=== PATIENT | male | born 1960 | race Caucasian/White ===

== ENCOUNTER 2020-07-23 16:08 | Outpatient (REF) | payer MEDICAID, SELFPAY ==
[2020-07-24 15:10] LABS: COVID-19 RT-PCR UVMMC Result Negative (Negative)
== END 2020-07-23 16:28 ==
LOC: NCHCN 16:08
PROVIDERS: PCP Internal Medicine; Visit Provider Internal Medicine
DX: Z20.822 Contact with and (suspected) exposure to COVID-19 (principal)
CPT/HCPCS: U0003

== ENCOUNTER 2020-07-28 17:55 | Outpatient (REF) | payer MEDICAID, SELFPAY ==
[2020-07-30 17:18] LABS: COVID-19 RT-PCR UVMMC Result Negative (Negative)
== END 2020-07-28 18:15 ==
LOC: NCHCN 17:55
PROVIDERS: PCP Internal Medicine; Visit Provider Internal Medicine
DX: Z20.822 Contact with and (suspected) exposure to COVID-19 (principal)
CPT/HCPCS: U0003

== ENCOUNTER 2020-10-13 09:48 | Emergency (ER) | payer MEDICAID, SELFPAY ==
[2020-10-13 09:56] VITALS: BP 131/85; PULSE 88; RESP 14; TEMP 36.7; O2SAT 97
--- NOTE | 2020-10-13 10:25 | DI.RAD_ITS ---
EXAM: XR HAND LT COMPLETE CLINICAL HISTORY: Left middle knuckle tenderness, R/O injury. TECHNIQUE: 2D digital imaging was performed. COMPARISON: No exams were available for comparison FINDINGS: BONES: No acute fracture is present. No bony destructive lesion is seen. JOINTS: No dislocation present. Degenerative changes are seen in the hand particularly at the 1st CMC joint. SOFT TISSUE: Normal. Calcifications are seen adjacent to the head of the 3rd metacarpal. These appea r chronic. IMPRESSION: No acute fracture or dislocation. DATA REPOSITORY: RADIATION DOSE DELIVERED:
--- NOTE | 2020-10-13 10:49 | W.ED.GENAD ---
Discharge Plan Disposition Patient Disposition: HOME Condition: Stable Discharge Details Clinical Impression: Swelling of left hand Primary Care Provider: Prosper Fulton ED Provider: Vira Banerjee Home Meds and New Rx's Prescriptions: New cephalexin 500 mg tablet 500 mg PO BID 7 Days Qty: 14 RF: 0 naproxen [EC-Naproxen] 500 mg tablet,delayed release (DR/EC) 500 mg PO BID PRN (Reason: pain) 7 Days Qty: 14 RF: 0 No Action ibuprofen 600 MG tablet 600 - 800 mg PO Q6H PRN (Reason: Pain) RF: 0 Discharge Instructions Instructions: Cellulitis (ED), Insect Bite or Sting (ED) Additional Instructions: No injuries or broken bones noted on the x-ray today.This could be an insect bite or cellulitis/infection of the skin. Rest, ice, compression elevation. Wear the Brant wrap as needed for comfort. Take the antibiotics as directed and the naproxen. Return to the ED if you have difficulty making a fist or extending your fingers or if the redness or swelling gets any worse, fever or any concerns. If you are still having problems in the next 1 to 2 weeks. You may follow-up with primary care or orthopedics. Follow up with primary care provider in 3-5 days. Return to ED sooner if any worsening or concerns. Increase oral fluids. Stand Alone Forms: Work Release Referrals: Donovan Smith MD [ [facility] STAFF PHYSICIAN] - 2 weeks Prosper Fulton MD [Primary Care Provider] - Discharge Data Discharge Date/Time-TO BE ENTERED AT DEPARTURE: 10/13/20 11:59 Medical Decision Making 59-year-old male presents to the ER with chief complaint of left dorsal hand erythema and swelling over the second and third MCP joint, Which began on . 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 He reports increased pain, inability to sleep last night. Did take 800 mg ibuprofen this morning which alleviated the throbbing. He denies any myalgias or fever. He does have full flexion extension of his wrist. Does have increased pain with forming a fist he is able to extend fully. He reports pain 7 out of 10 upon initial exam. EXAM: XR HAND LT COMPLETE CLINICAL HISTORY: Left middle knuckle tenderness, R/O injury. TECHNIQUE: 2D digital imaging was performed. COMPARISON: No exams were available for comparison FINDINGS: BONES: No acute fracture is present. No bony destructive lesion is seen. JOINTS: No dislocation present. Degenerative changes are seen in the hand particularly at the 1st CMC joint. SOFT TISSUE: Normal. Calcifications are seen adjacent to the head of the 3rd metacarpal. These appear chronic. IMPRESSION: No acute fracture or dislocation. Differential diagnosis includes but not limited to osteoarthritis, cellulitis, venomous insect bite, occult fracture. Will place patient on cephalexin for 7 days for possible cellulitis. Will instruct on ice and RICE procedures. We will give patient Brant wrap prior to discharge. HPI General Mode of arrival: ambulatory. Date/Time Provider Initiated Documentation: 10/13/20 09:55. Limitations to Documentation: no limitations. Information obtained by: patient. HPI Narrative: 59-year-old male presents to the ER with chief complaint of left dorsal hand erythema and swelling over the second and third MCP joint, Which began on . 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 He reports increased pain, inability to sleep last night. Did take 800 mg ibuprofen this morning which alleviated the throbbing. He denies any myalgias or fever. He does have full flexion extension of his wrist. Does have increased pain with forming a fist he is able to extend fully. He reports pain 7 out of 10 upon initial exam. Related Data Home Medications Medication Instructions Recorded Confirmed cephalexin 500 mg PO BID 7 Days #14 tab 10/13/20 ibuprofen 600 - 800 mg PO Q6H PRN 10/13/20 10/13/20 naproxen [EC-Naproxen] 500 mg PO BID PRN 7 Days #14 tab 10/13/20 Previous Rx's Medication Instructions Recorded cephalexin 500 mg PO BID 7 Days #14 tab 10/13/20 naproxen [EC-Naproxen] 500 mg PO BID PRN 7 Days #14 tab 10/13/20 Allergies Allergy/AdvReac Type Severity Reaction Status Date / Time No Known Allergies Allergy Unverified 10/13/20 10:01 General Stated Complaint: Orthopedic DRU: 3 Review of Systems All systems reviewed & are unremarkable except as noted in HPI and below Constitutional Constitutional: Denies fever(s) and Denies lethargy Cardiovascular Cardiovascular: Reports system reviewed and no additional complaints, except as documented, Denies chest pain, Denies dyspnea and Denies dyspnea on exertion Respiratory Respiratory: Denies cough, Denies dyspnea and Denies dyspnea on exertion Musculoskeletal Musculoskeletal: Reports as per HPI, Denies myalgias, Reports joint swelling, Denies numbness and Denies radiating pain into limb Comments: Erythema swelling noted to the dorsum of the left hand no significant wounds there is an old dried scab just adjacent to the area. He has full range of motion to his hand is able to extend and flex. Neurologic Neurologic: Denies numbness [facility] Social History Smoking/Tobacco Use Status: Never Smoking risk assessment performed?: Yes Alcohol Intake: current Alcohol Intake frequency: a few times a month Alcohol type: beer Drug use: Never Do you feel safe at home: Yes Do you feel safe in your relationship?: Yes Exam Narrative Exam Narrative: Constitutional: Alert and oriented x3. Appears stated age. Normal body habitus. Head: Normocephalic, no trauma. Eyes: Pupils PERRLA, Red reflex noted, EOM's intact. Eyelids symmetrical without lesions, discharge, or swelling. ENT: Bilateral TM's WNL, External ear normal to inspection, no mastoid TTP, swelling, or erythema, Nasal turbinates WNL, no nasal discharge. Normal dentition, Posterior pharynx WNL, no exudate. Chest: RRR, Normal S1, S2, distal pulses intact. Resp: Lungs clear to auscultation bilaterally, no wheezes, rales, or rhonchi. Musculoskeletal: Normal gait, 5/5 strength to all four extremities. Swelling erythema noted the dorsum of the left hand no obvious puncture wound or area of injury. Skin: No suspicious rashes or lesions. Capillary refill less than 2 sec. Neurologic: Cranial nerves II-XII intact. Alert and oriented x 3. DTR's intact. Hematologic/Lymphatic: No ecchymosis, no lymphadenopathy. Course Vital Signs Vital signs: Vital Signs Temperature 36.7 C 10/13/20 09:56 Pulse 88 10/13/20 09:56 Respiratory Rate 14 10/13/20 09:56 Blood Pressure 131/85 10/13/20 09:56 Pulse Oximetry 97 10/13/20 09:56 Temperature 36.7 C 10/13/20 09:56 Temperature Source Skin 10/13/20 09:56 Pulse 88 10/13/20 09:56 Respiratory Rate 14 10/13/20 09:56 Respiratory Effort 10/13/20 10:02 Blood Pressure 131/85 10/13/20 09:56 Blood Pressure Position Sitting 10/13/20 09:56 Pulse Oximetry 97 10/13/20 09:56 Oxygen Delivery Method Room Air 10/13/20 09:56 Oxygen Flow Rate 0 10/13/20 09:56 Pain Level 7 10/13/20 10:13
[2020-10-13] MEDS: Cephalexin 500 MG CAP PO (10:59)
[2020-10-13] MEDS: Acetaminophen 500 MG TAB 1000 MG PO (10:59)
[2020-10-13] MEDS: Cephalexin 500 MG CAP, 4 CAPS/BTL PO (10:59)
== END 2020-10-13 11:59 | disposition home or self-care (01) ==
PROVIDERS: Emergency Provider Registered Nurse Emergency; PCP Internal Medicine
DX: L03.114 Cellulitis of left upper limb (principal)
CPT/HCPCS: 99283; 73130

== ENCOUNTER 2021-06-17 14:03 | Emergency (ER) | payer MEDICAID, SELFPAY ==
[2021-06-17 14:07] VITALS: BP 147/92; PULSE 88; RESP 12; TEMP 36.8; O2SAT 97
--- NOTE | 2021-06-17 14:19 | ED.GENADUL_ITS ---
Discharge Plan Disposition Patient Disposition: HOME Condition: Stable Discharge Details Clinical Impression: Rib contusion Primary Care Provider: Prosper Fulton ED Provider: Angelo Hinkle Home Meds and New Rx's Prescriptions: Continued ibuprofen 600 MG tablet 600 - 800 mg PO Q6H PRN (Reason: Pain) RF: 0 Discharge Instructions Instructions: Rib Contusion (ED) Additional Instructions: you can take 1000mg tylenol and 600mg ibuprofen every 6 hours for pain as needed if you still have pain follow up with your primary care provider if you feel more ill, have severe worsening pain or fever return to the emergency department Medical Decision Making 60 yo male who denies chronic medical problems comes in with left sided chest pain s/p fall Tuesday. He states he hadn't sanded his driveway and had a small coating of snow covering it Tuesday. He was walking and slipped on ice he didn't see and landed on the left chest. No loc and no head trauma. HAs had left lateral chest pain since so came here. Denies any fevers, chills, abdominal pain, neck pain, head pain. He is in no distress on exam. He is speaking clearly , caox4 with normal gait. He has no signs of head trauma and no midline spine tenderness, full range of motion of the neck. No abodminal tenderness. He is tender in the anterior axillary line on the left chest over the 3-4 ribs, no anterior chest tenderness. Clear lungs, no murmurs. Suspect rib contusion biut will xray to evaluate for fracture and less likely pneumothorax. imaging shows possible fracture nondisplaced of 5th rib otherwise no acute findings. Discussed with pt and he is stable for d/c and declined pain meds. Advised to f/u with pcp and return precautions given Differential Diagnosis Differential Diagnosis: fracture, contusion, pneumothorax Imaging Data Radiologic Study: Attestation: I personally reviewed and interpreted this imaging study as follows: Imaging: X-Ray Radiologist's impression: [No acute pulmonary findings.] [Linear lucency in the lateral aspect of the left 5th rib which may represent a nondisplaced fracture. No pneumothorax or pleural effusion. Results of this exam have been verbally communicated with provider.] HPI General Mode of arrival: ambulatory . Date/Time Provider Initiated Documentation: 06/17/21 14:03 . Limitations to Documentation: no limitations . Information obtained by: patient . History of Present Illness 60 year old M presents to the emergency department with the chief complaint of left sided chest pain s/p fall, described as moderate, with intensity rated at 5. Quality is described as aching, and is localized to the chest. Patient reports no radiation. Patient started experiencing this day(s) (4) and it has been constant. No relieving factors improve symptom(s), Other factors that worsen symptoms (deep breaths) . Patient notes no other symptoms.. Patient did receive the following treatments prior to arrival, none Related Data Home Medications Medication Instructions Recorded Confirmed ibuprofen 600 - 800 mg PO Q6H PRN 10/13/20 06/17/21 Allergies Allergy/AdvReac Type Severity Reaction Status Date / Time No Known Allergies Allergy Unverified 06/17/21 14:15 General Stated Complaint: Chest/Rib DRU: 4 Review of Systems All systems reviewed & are unremarkable except as noted in HPI and below Constitutional Constitutional: Denies chills, Denies fever(s) and Denies weakness Cardiovascular Cardiovascular: Denies dyspnea Respiratory Respiratory: Denies cough and Denies dyspnea Gastrointestinal Gastrointestinal: Denies abdominal pain, Denies nausea and Denies vomiting Musculoskeletal Musculoskeletal: Denies joint swelling Neurologic Neurologic: Denies weakness Psychiatric Psychiatric: Denies depression [facility] Active Problem List (Updated 06/17/21 @ 14:24 by Angelo Hinkle MD) Swelling of left hand (Acute) Rib contusion (Acute) Social History Smoking/Tobacco Use Status: Never Smoking risk assessment performed?: Yes Alcohol Intake: current Alcohol Intake frequency: a few times a month Alcohol type: beer Drug use: Never Substance use type: does not use Do you feel safe at home: Yes Do you feel safe in your relationship?: Yes Exam Const General: no acute distress Orientation: alert [facility] Head: normal to inspection Ears: external ears normal General nose exam: external nose normal Mouth: moist mucous membranes Eyes General: appearance normal, both eyes and all related structures Neck Neck: normal visual inspection Chest Chest: tenderness Resp Effort & Inspection: normal respiratory effort and able to speak in complete sentences Cardio Rate: regular rate GI Palpation: soft and nontender Skin General skin exam: no rashes or lesions noted Neuro General: patient alert and patient oriented x3 Extrem General: normal to inspection Psych Mental Status: mental status grossly normal Course Vital Signs Vital signs: Vital Signs Temperature 36.8 C 06/17/21 14:07 Pulse 88 06/17/21 14:07 Respiratory Rate 12 06/17/21 14:07 Blood Pressure 147/92 H 06/17/21 14:07 Pulse Oximetry 97 06/17/21 14:07 Temperature 36.8 C 06/17/21 14:07 Temperature Source Temporal Artery Scan 06/17/21 14:07 Pulse 88 06/17/21 14:07 Respiratory Rate 12 06/17/21 14:07 Respiratory Effort Non-Labored 06/17/21 14:12 Respiratory Depth Normal 06/17/21 14:12 Respiratory Pattern Normal 06/17/21 14:12 Blood Pressure 147/92 H 06/17/21 14:07 Blood Pressure Position Sitting 06/17/21 14:07 Pulse Oximetry 97 06/17/21 14:07 Oxygen Delivery Method Room Air 06/17/21 14:07 Oxygen Flow Rate 0 06/17/21 14:07 Pain Level 8 06/17/21 14:12 PAWSS Have you Been Recently Intoxicated or Drunk Within the Last 30 days?: No Have you Ever Experienced Previous Episodes of Alcohol Withdrawal?: No Have you ever Experienced Withdrawal Seizures?: No Have you ever Experienced Delirium Tremens(DT)s?: No Have you ever undergone Alcohol Rehabilitation Treatment (i.e, inpt ot outpatient treatment programs)?: No Have you ever Experienced Blackouts?: No Have you ever Combined Alcohol with other Downers within the last 90 days?: No Have you ever Combined Alcohol with any other Substance of Abuse during the last 90 days?: No Positive Blood Alcohol level on Presentation? [PCS.BAL]: No Evidence of Increased Autonomic Activity (i.e. HR>120, tremor, sweating, agitation, nausea)?: No Result: 0
[2021-06-17] MEDS: Ibuprofen 600 MG TAB PO (14:23)
--- NOTE | 2021-06-17 14:26 | DI.RAD_ITS ---
Exam(s) XR CHEST 2V PA LATERAL EXAM: XR CHEST 2V PA LATERAL CLINICAL HISTORY: left sided chest pain s/p fall TECHNIQUE: 2D digital imaging was performed of the chest. Two images were obtained. PA and lateral views were obtained. COMPARISON: CR LEFT RIBS TO INCLUDE CXR from 05/11/2017 CR LEFT RIBS TO INCLUDE CXR from 05/11/2017 FINDINGS: MEDIASTINUM: Normal. HEART: Normal. PULMONARY VASCULATURE: Normal. LUNGS: Clear. PLEURAL SPACE: No pleural effusion or pneumothorax. BONE:Within normal limits for the patient's age. There is a question of a linear lucency at involvin g the lateral aspect of the left 5th rib which may represent a nondisplaced fracture. OTHER FINDINGS:Normal. IMPRESSION: 1. No acute pulmonary findings. 2. Linear lucency in the lateral aspect of the left 5th rib which may represent a nondisplaced fractu re. 3. No pneumothorax or pleural effusion. 4. Results of this exam have been verbally communicated with provider. DATA REPOSITORY: RADIATION DOSE DELIVERED:
== END 2021-06-17 14:51 | disposition home or self-care (01) ==
LOC: ER 14:46
PROVIDERS: Emergency Provider Emergency Medicine; PCP Internal Medicine
DX: S20.212A Contusion of left front wall of thorax, initial encounter (principal); W00.0XXA Fall on same level due to ice and snow, initial encounter
CPT/HCPCS: 99283; 71046

== ENCOUNTER 2021-06-30 15:12 | Outpatient (REF) | payer MEDICAID, SELFPAY ==
[2021-07-02 17:00] LABS: COVID-19 RT-PCR UVMMC Result Negative (Negative)
== END 2021-06-30 15:13 | disposition home or self-care (01) ==
LOC: NCHCN 15:12
PROVIDERS: PCP Internal Medicine; Visit Provider Nurse Practitioner Family
DX: Z20.822 Contact with and (suspected) exposure to COVID-19 (principal)
CPT/HCPCS: U0003

== ENCOUNTER 2021-09-04 11:40 | Emergency (ER) | payer MEDICAID, SELFPAY ==
[2021-09-04 11:48] VITALS: BP 154/78; PULSE 79; RESP 16; TEMP 36.6; O2SAT 99
--- NOTE | 2021-09-04 12:45 | DI.RAD_ITS ---
Exam(s) XR HAND LT COMPLETE EXAM: XR HAND LT COMPLETE CLINICAL HISTORY: crush injury concern for L second digit fracture. TECHNIQUE: 2D digital imaging was performed. COMPARISON: CR XR HAND LT COMPLETE from 10/13/2020 FINDINGS: There is an acute angulated oblique fracture of the diaphysis of the proximal phalanx of the 2nd-inde x finger. There are also fracture lines evident in the middle phalanx of the same finger, nondisplaced but invo lving the articular surface of the PIP joint. The distal phalanx is intact as is the metacarpal. No other phalangeal fractures identified. IMPRESSION: Fractures of the proximal and middle phalanges of the 2nd-index finger. No radiopaque foreign body. DATA REPOSITORY: RADIATION DOSE DELIVERED:
--- NOTE | 2021-09-04 12:45 | ED.GENADUL_ITS ---
Discharge Plan Disposition Patient Disposition: HOME Condition: Improving Discharge Details Chief Complaint: Orthopedic Clinical Impression: Finger fracture, left Primary Care Provider: Prosper Fulton ED Provider: Jesus Eddy Home Meds and New Rx's Prescriptions: No Action ibuprofen 600 MG tablet 600 - 800 mg PO Q6H PRN (Reason: Pain) 0RF Discharge Instructions Instructions: Finger Fracture (ED) Additional Instructions: Please follow-up with Dr. Smith (orthopedic surgery) early next week as scheduled; return to the emergency department if you develop change in color or sensation in finger or hand. Continue with Motrin Tylenol at home elevate and rest. Medical Decision Making 60-year-old male presents several days after falling on the ice and having his hand crushed by a piece of wood, swelling to second digit of left hand, neurovascular exam of limb intact warm well perfused and sensate extremity and digit, range of motion limited by swelling however is able to flex distally and proximally and is able to extend, no signs of laceration, concern for underlying fracture versus dislocation. Patient does have significant edema to the second digit, and I informed patient that if the edema were to get worse and he were to develop numbness or other change in sensation or noticed any change in the temperature or color of his finger he will need to return immediately to the emergency department for stat orthopedic intervention as this would be concerning for a compartment syndrome of the finger. Trial of ice anti- inflammatory will obtain x-ray. Likely close follow-up with orthopedic team pending x-ray results. 15: [address] Smith who would like to follow patient closely next week to assure proper healing, will likely need fixation in the near future. Volar plaster splint applied to second through fourth digit left hand crossing the wrist on the forearm. Patient has intact perfusion and sensation in digits. Patient given home care instructions number cautions. We will follow up next week. HPI General Date/Time Provider Initiated Documentation: 09/04/21 12:15 . HPI Narrative: 50-year-old male presents with several days after falling on the ice while carrying a piece of wood, crush injury to his left hand involving his second digit and palm, swelling and pain over the past several days. Related Data Home Medications Medication Instructions Recorded Confirmed ibuprofen 600 mg tablet 600 - 800 mg PO Q6H PRN 10/13/20 09/04/21 Allergies Allergy/AdvReac Type Severity Reaction Status Date / Time No Known Allergies Allergy Unverified 09/04/21 11:51 General Stated Complaint: Orthopedic DRU: 4 Review of Systems Narrative: Review of Systems Constitutional: negative Eyes: negative ENT: negative Cardiovascular: negative Respiratory: negative Gastrointestinal: negative : negative Musculoskeletal: Digit swelling hand pain Skin: negative Neurologic: negative Psych: negative PFSH All Active Problems (Updated 09/04/21 @ 15:51 by Jesus Eddy MD) Swelling of left hand (Acute) Rib contusion (Acute) Finger fracture, left (Acute) Social History Smoking/Tobacco Use Status: Never Smoking risk assessment performed?: Yes Alcohol Intake: current Alcohol Intake frequency: a few times a month Alcohol type: beer Drug use: Never Substance use type: does not use Do you feel safe at home: Yes Do you feel safe in your relationship?: Yes Exam Narrative Exam Narrative: Physical Examination General: alert, awake, cooperative, resting comfortably, no acute distress HEENT: normocephalic, atraumatic; PERRL, EOM intact, conjunctiva normal; no nasal discharge; moist mucous membranes, oral and pharyngeal mucosa normal, tolerating secretions Neck: supple, trachea midline; full ROM Chest: normal to inspection Respiratory: normal respiratory effort, speaking in full sentences, clear to auscultation, no wheezing, rales or rhonchi Cardiac: regular rate, regular rhythm, S1S2 intact, no murmurs rubs or gallops GI: abdomen soft, non-tender, non-distended; no palpable mass or hepatosplenomegaly Skin: no lesions, rashes or trauma appreciated Neuro: AAOx3, normal speech, moving all extremities Extremities: Left upper extremity: Ecchymosis and swelling to second digit, able to flex distally and proximally however limited by tense edema, extension intact, warm sensate digit, median radial ulnar nerve distribution intact, some ecchymosis into mid hand, no evidence of lacerations Psych: Appropriate mood and affect Course Vital Signs Vital signs: Vital Signs Temperature 36.6 C 09/04/21 11:48 Pulse 79 09/04/21 11:48 Respiratory Rate 16 09/04/21 11:48 Blood Pressure 154/78 H 09/04/21 11:48 Pulse Oximetry 99 09/04/21 11:48 Temperature 36.6 C 09/04/21 11:48 Temperature Source Temporal Artery Scan 09/04/21 11:48 Pulse 79 09/04/21 11:48 Respiratory Rate 16 09/04/21 11:48 Respiratory Effort Non-Labored 09/04/21 11:52 Blood Pressure 154/78 H 09/04/21 11:48 Blood Pressure Position Sitting 09/04/21 11:48 Pulse Oximetry 99 09/04/21 11:48 Oxygen Delivery Method Room Air 09/04/21 11:48 Oxygen Flow Rate 0 09/04/21 11:48 Pain Level 7 09/04/21 11:48 PAWSS Have you Been Recently Intoxicated or Drunk Within the Last 30 days?: No Have you Ever Experienced Previous Episodes of Alcohol Withdrawal?: No Have you ever Experienced Withdrawal Seizures?: No Have you ever Experienced Delirium Tremens(DT)s?: No Have you ever undergone Alcohol Rehabilitation Treatment (i.e, inpt ot outpatient treatment programs)?: No Have you ever Experienced Blackouts?: No Have you ever Combined Alcohol with other Downers within the last 90 days?: No Have you ever Combined Alcohol with any other Substance of Abuse during the last 90 days?: No Positive Blood Alcohol level on Presentation? [PCS.BAL]: No Evidence of Increased Autonomic Activity (i.e. HR>120, tremor, sweating, agitation, nausea)?: No Result: 0
[2021-09-04] MEDS: Ketorolac 15 MG/ML VIAL IM (12:52)
== END 2021-09-04 15:57 | disposition home or self-care (01) ==
PROVIDERS: Emergency Provider Emergency Medicine; PCP Internal Medicine
DX: S62.641A Nondisplaced fracture of proximal phalanx of left index finger, initial encounter for closed fracture (principal); W23.0XXA Caught, crushed, jammed, or pinched between moving objects, initial encounter
CPT/HCPCS: 29125; 96372; 99284; 73130; 99283; J1885

== ENCOUNTER 2021-09-07 14:26 | Outpatient (CLI) | payer MEDICAID, SELFPAY ==
--- NOTE | 2021-09-07 13:45 | DI.RAD_ITS ---
Exam(s) XR FINGER LT INDEX EXAM: XR FINGER LT INDEX CLINICAL HISTORY: eval LIF proximal and middle phalanx fracture. TECHNIQUE: 2D digital imaging was performed. COMPARISON: None. FINDINGS: BONES: No change in nondisplaced intra-articular fracture of the proximal to mid middle phalanx. No change in alignment of the comminuted fracture of the mid aspect of the proximal phalanx which shows posterior angulation. No definite extension to the articular surface. No bony destructive lesion is seen. JOINTS: No dislocation present. SOFT TISSUE: Soft tissue swelling. IMPRESSION: Stable appearance of fractures of proximal and mid phalanges. DATA REPOSITORY: RADIATION DOSE DELIVERED:
--- NOTE | 2021-09-07 14:15 | DI.RAD_ITS ---
Exam(s) XR FINGER LT INDEX POST REDUC EXAM: XR FINGER LT INDEX POST REDUC INDICATION: f/u Left IF reduction/splinting. COMPARISON: CR XR FINGER LT INDEX from 09/07/2021 TECHNIQUE: 2D digital imaging was performed. FINDINGS: A posterior splint has been placed. Two lateral views were performed. There is no definite change i n alignment of the fractures of the proximal and mid phalanges. Soft tissue swelling is again noted. DATA REPOSITORY: RADIATION DOSE DELIVERED:
== END 2021-09-07 14:27 | disposition home or self-care (01) ==
LOC: DIORS 14:26
PROVIDERS: PCP Internal Medicine; Referring Provider Internal Medicine; Visit Provider Student in an Organized Health Care Education/Training Program
DX: S62.641D Nondisplaced fracture of proximal phalanx of left index finger, subsequent encounter for fracture with routine healing; S62.651D Nondisplaced fracture of middle phalanx of left index finger, subsequent encounter for fracture with routine healing; M79.89 Other specified soft tissue disorders; W00.0XXD Fall on same level due to ice and snow, subsequent encounter
CPT/HCPCS: 73140

== ENCOUNTER 2021-09-14 09:13 | Outpatient (CLI) | payer MEDICAID, SELFPAY ==
--- NOTE | 2021-09-14 09:00 | DI.RAD_ITS ---
Exam(s) XR FINGER LT INDEX EXAM: XR FINGER LT INDEX INDICATION: F/U L INDEX FINGER FRACTURE. TECHNIQUE: 2D digital imaging was performed. 2D digital imaging was performed. Three views COMPARISON: CR XR FINGER LT INDEX POST REDUC from 09/07/2021 CR XR FINGER LT INDEX from 09/07/2021 07 September 2021 FINDINGS: There has been no change in the alignment of the fractures of the proximal and middle phalanges. DATA REPOSITORY: RADIATION DOSE DELIVERED:
== END 2021-09-14 09:14 | disposition home or self-care (01) ==
LOC: DIORS 09:13
PROVIDERS: PCP Internal Medicine; Visit Provider Student in an Organized Health Care Education/Training Program
DX: S62.641D Nondisplaced fracture of proximal phalanx of left index finger, subsequent encounter for fracture with routine healing (principal); S62.651D Nondisplaced fracture of middle phalanx of left index finger, subsequent encounter for fracture with routine healing; W00.0XXD Fall on same level due to ice and snow, subsequent encounter
CPT/HCPCS: 73140

== ENCOUNTER 2021-09-15 14:17 | Day surgery (SDC) | payer MEDICAID, SELFPAY ==
[2021-09-15 14:46] VITALS: BP 148/98; PULSE 77; RESP 16; TEMP 36.4; O2SAT 98
[2021-09-15] MEDS: Lidocaine 1% Multi-Dose 50 ML VIAL (16:45)
[2021-09-15] MEDS: Sodium Bicarbonate 50 MEQ/50 ML VIAL (16:45)
[2021-09-15] MEDS: Bupivacaine 0.5% Pres-Free 30 ML VIAL (17:30)
[2021-09-15 17:45] VITALS: BP 142/87; PULSE 66; RESP 16; TEMP 36.5; O2SAT 98
--- NOTE | 2021-09-15 21:53 | ROE_ITS ---
Date of service: 09/15/21 Time of Service: 17:30 Operative Note Operative Note DATE OF PROCEDURE: 09/15/21 PRE-OP DIAGNOSIS: Left index proximal phalanx and middle phalanx fractures PROCEDURE: Closed reduction and percutaneous pinning of left index proximal phalanx fracture SURGEON: Donovan Smith ANESTHESIA TYPE: Local By Surgeon Refer to Anesthesia Record ESTIMATED BLOOD LOSS: 10 TOURNIQUET TIME: 0 COMPLICATIONS: None Patient was transported to: same day Patient's condition: stable Indications: All is a 60-year-old who suffered a fracture of his left index finger middle phalanx and proximal phalanx. There is notable displacement. He had continue to work and initially elected to proceed with nonoperative treatments despite the displacement of the fracture fragments. However, he called this morning with a change of mind about the treatment course and desire for this to be fixed. I previously discussed some treatment options and recommended close redu ction and percutaneous pinning. I once again reviewed this treatment with him. I discussed the risk of the procedure to include bleeding, infection, pain, stiffness, damage to nerves and vessels, damage to muscle and tendons, need for repeat procedures, pin site irritation or infection. Despite these risk, he elects to proceed. Findings: There is a notably comminuted and displaced fracture of the proximal phalanx. Close reduction was challenging to obtain reduction in both the AP and lateral views. Appropriate reduction in both use a K wire was placed from a distal to proximal fashion. A second K wire was attempted but was unable to successfully gain fixation of both primary fracture fragments. Therefore, a single K wire was utilized. Procedure Description: All was greeted in the preoperative holding area. His identity was confirmed the correct site was identified and marked. The consent was reviewed the patient and signed. He was taken to the operating room. Left and was placed into a hand table. No prophylactic antibiotics were necessary. A timeout was performed for safe surgery. The left hand was prepped with ChloraPrep and draped in standard fashion. A digital nerve block of the left index finger was administered using 10 cc of 1% lidocaine. Once this had a chance to set up a close reduction was performed. I utilized fluoroscopy to help guide this reduction. The reduction was quite challenging and already showed some early signs of healing. I was unable to fully improve the translation in the lateral plane but was able to improve the angulation. Likewise, some mild translation was still present in the AP plane. This likely corresponded to early fracture callus formation within the fracture itself. I still did not think opening this fracture at this time would be beneficial due to stiffness concerns. I utilized a pointed point clamp as well as manual reduction to obtain an appropriate reduction that had no significant angulation and mild translation. A .045 inch K wire was then inserted from the distal, radial shoulder of the proximal phalanx across the fracture and into the base of the proximal phalanx. This had excellent purchase in both aspects of the bone and had excellent stability. Once again, there is some mild translation of the fracture but no significant angulation. I then attempted a second K wire. Unfortunately, the comminution over the distal, ulnar aspect of this proximal phalanx made insertion difficult. I tried for multiple positions to get this K wires across the fracture site appropriately but was unable to due to fracture fragments about the side of the proximal phalanx. After attempting multiple times I decided to abort placement of a second K wire. Stability was checked with single K wire which did seem to hold the bones in appropriate position. Therefore, this was completed with a single K wire. Reinjection of the digital block was performed using 0.25% bupivacaine. The hand was cleaned. The pin was cut at the level of the skin. The finger was wrapped with Xeroform followed by gauze and a conform dressing. An AlumaFoam splint was placed dorsally and this was secured with tape and an Brant wrap. At the end the case all counts are correct. He is transferred back to the same-day surgery area in a stable condition
== END 2021-09-15 17:57 | disposition home or self-care (01) ==
PROVIDERS: PCP Internal Medicine; Visit Provider Student in an Organized Health Care Education/Training Program
PROC: 0PSV34Z Reposition Left Finger Phalanx with Internal Fixation Device, Percutaneous Approach (ICD-10-PCS; CPT 26727; principal; 2021-09-15 18:00)
DX: S62.621A Displaced fracture of middle phalanx of left index finger, initial encounter for closed fracture (principal); S62.611A Displaced fracture of proximal phalanx of left index finger, initial encounter for closed fracture; X58.XXXA Exposure to other specified factors, initial encounter
CPT/HCPCS: 26727

== ENCOUNTER 2021-09-28 09:04 | Outpatient (CLI) | payer MEDICAID, SELFPAY ==
--- NOTE | 2021-09-28 08:45 | DI.RAD_ITS ---
Exam(s) XR FINGER LT INDEX EXAM: XR FINGER LT INDEX CLINICAL HISTORY: S/P PINNING OF L INDEX FINGER. TECHNIQUE: 2D digital imaging was performed. COMPARISON: CR XR FINGER LT INDEX from 09/14/2021 FINDINGS: 3 views There is now a K-wire through the fracture site in the proximal phalanx with some improved alignment evident. IMPRESSION: DATA REPOSITORY: RADIATION DOSE DELIVERED:
== END 2021-09-28 09:05 | disposition home or self-care (01) ==
LOC: DIORS 09:04
PROVIDERS: PCP Internal Medicine; Visit Provider Student in an Organized Health Care Education/Training Program
DX: S62.641D Nondisplaced fracture of proximal phalanx of left index finger, subsequent encounter for fracture with routine healing (principal); W00.0XXD Fall on same level due to ice and snow, subsequent encounter
CPT/HCPCS: 73140

== ENCOUNTER 2021-11-02 15:02 | Outpatient (CLI) | payer MEDICAID, SELFPAY ==
--- NOTE | 2021-11-02 07:45 | DI.RAD_ITS ---
Exam(s) XR FINGER LT INDEX EXAM: XR FINGER LT INDEX EXAM DATE/TIME: CLINICAL HISTORY: f/u index finger fracture. TECHNIQUE: 2D digital imaging was performed of the left finger. Three views were obtained. PA/AP, oblique, and lateral views were obtained. COMPARISON: Priors available for comparison. FINDINGS: BONES: There has been no change in alignment of the fractures involving the proximal middle phalanges of the left index finger. The percutaneous pin has been removed. No bony destructive lesion is see n. JOINTS: No dislocation is present. SOFT TISSUE: Soft tissue swelling of the index finger. IMPRESSION: Stable fractures involving the proximal middle phalanges of the left index finger. DATA REPOSITORY: RADIATION DOSE DELIVERED:
== END 2021-11-02 15:03 | disposition home or self-care (01) ==
LOC: DIORS 15:03
PROVIDERS: PCP Internal Medicine; Visit Provider Physician Assistant
DX: S62.641D Nondisplaced fracture of proximal phalanx of left index finger, subsequent encounter for fracture with routine healing; W23.0XXD Caught, crushed, jammed, or pinched between moving objects, subsequent encounter
CPT/HCPCS: 73140

== ENCOUNTER 2021-11-30 03:09 | Outpatient (CLI) | payer MEDICAID, SELFPAY ==
[2021-11-30 11:26] LABS: Source Nasal/Nares
[2021-11-30 19:41] LABS: COVID-19 PCR Negative (Negative)
== END 2021-11-30 03:10 | disposition home or self-care (01) ==
LOC: LBO 03:09
PROVIDERS: PCP Internal Medicine; Visit Provider Student in an Organized Health Care Education/Training Program
DX: Z20.822 Contact with and (suspected) exposure to COVID-19 (principal); Z01.818 Encounter for other preprocedural examination
CPT/HCPCS: 87635

== ENCOUNTER 2021-12-02 11:22 | Day surgery (SDC) | payer MEDICAID, SELFPAY ==
[2021-12-02 11:45] VITALS: BP 137/97; PULSE 79; RESP 16; TEMP 36.4; O2SAT 98
--- NOTE | 2021-12-02 12:38 | PDOC.DSDIS_ITS ---
Discharge Plan Disposition Patient Disposition: HOME Condition: Good Discharge Details Reason For Visit: Left index finger stiffness Attending Provider: Donovan Smith Primary Care Provider: Prosper Fulton Home Meds and New Rx's Prescriptions: New hydrocodone-acetaminophen 5-325 mg tablet 1 tab PO Q6H PRN (Reason: severe pain) Qty: 4 0RF Rx Instructions: Take one tablet up to every 6 hours as needed for severe postoperative pain Continued ibuprofen 600 mg tablet 600 mg PO TID PRN (Reason: pain) Qty: 90 0RF acetaminophen 500 mg tablet 500 mg PO Q6H PRN (Reason: pain) Qty: 60 2RF Discharge Instructions Additional Instructions: Finger Manipulation Discharge Instructions Activity: You should keep the hand elevated as much as possible for the first few days. You may use the other fingers as tolerated but avoid trying to do too much too soon. You may perform light activities. You should work on flexion of the digit, isolating DIP and PIP joints. Given the weakness to extension, you should splint the PIP joint in extension as much as possible when resting. Medications: - You should take Tylenol and Ibuprofen for baseline pain control. - You have Hydrocodone for breakthrough pain. - You may apply ice over the finger. Follow-up: 7-10 days Referrals: Donovan Smith MD [ [facility] STAFF PHYSICIAN] - Activity:: Elevate Diet:: As Tolerated Discharge Orders Discharge Orders: Discharge Order (Routine); Ordered 12/02/21 Ordered By: Davina Smith
--- NOTE | 2021-12-02 12:45 | DI.RAD_ITS ---
Exam(s) XR FINGER LT INDEX EXAM: XR FINGER LT INDEX CLINICAL HISTORY: left index finger fracture TECHNIQUE: 2D and realtime digital imaging was performed. CONTRAST MATERIAL: Refer to procedure report. COMPARISON: CR XR FINGER LT INDEX from 11/02/2021 FINDINGS: Fluoroscopy was provided for Dr. Smith during the performance of a finger fracture evaluation. P lease refer to the procedure report for complete details. Ka,r=0.30 mGy IMPRESSION: RADIATION DOSE DELIVERED:
[2021-12-02] MEDS: Lidocaine 1% Pres-Free 30 ML VIAL (13:19)
[2021-12-02] MEDS: HYDROcodone 5/Acetaminophen 325 TAB PO ×2 (13:36→13:57)
[2021-12-02 13:46] VITALS: BP 156/101; PULSE 67; RESP 16; TEMP 36.3; O2SAT 99
[2021-12-02 14:08] VITALS: BP 144/102; PULSE 68; RESP 16; TEMP 36.1; O2SAT 98
[2021-12-02 14:32] VITALS: BP 144/88; PULSE 62; RESP 18; TEMP 36.2; O2SAT 98
--- NOTE | 2021-12-02 21:44 | W.PM.OP ---
Date of service: 12/02/21 Time of Service: 13:30 Operative Note Operative Note DATE OF PROCEDURE: 12/02/21 PRE-OP DIAGNOSIS: Left Index Finger Stiffness PROCEDURE: Manipulation of Left Index Finger PIP and DIP joints SURGEON: Donovan Smith ANESTHESIA TYPE: Local By Surgeon Refer to Anesthesia Record ESTIMATED BLOOD LOSS: 0 TOURNIQUET TIME: 0 COMPLICATIONS: None Patient was transported to: same day Patient's condition: stable Indications: All is a 61-year-old who suffered a crushing injury to his left index finger which resulted in a displaced fracture of the proximal phalanx and a comminuted fracture of the base of the middle phalanx involving the PIP joint. He was treated with some conservative treatment eventually with pending. He has continue to work as developed significant stiffness about the left index finger. Therefore, I did offer manipulation of the left index finger to try to improve this range of motion. I reviewed the risk of the procedure to include refracture, damage to tendons and bones, need for repeat procedures, swelling, pain. Despite these risks, he elects to proceed. Procedure Description: Calin was greeted in the preoperative holding area. His identity was confirmed and the correct side was identified and marked. The consent was reviewed the patient and signed. He was taken back to the operating room placed in the supine position. The left hand was identified as the correct site including index finger. A timeout was performed for safe surgery. A digital block was then administered utilizing 1% lidocaine and 0.25% bupivacaine. Once the anesthetic and fully set up I then performed a manipulation identifying the PIP joint and the DIP joint individually and working both with flexion and extension. I was able to improve this range of motion significantly at both the PIP and the DIP. Passively, the DIP had 0 degrees of extension and 45 degrees of flexion. Passively the PIP joint had about 10 degrees of extension and 95 degrees of flexion. This was much improved from before. However, there is notable weakness with active extension about the finger. His active flexion was intact but active extension was limited. I utilized fluoroscopy to identify the finger to make sure there is no further fracture which there was not. The bones are moving as 1 unit. However, I am not concerned about potential central slip injury. I then placed him into an extension splint at the PIP joint. He is to wear this when he is not actively working on finger flexion. He will be started on hand therapy. I will follow-up with him in another 7 days.
== END 2021-12-02 14:32 | disposition home or self-care (01) ==
PROVIDERS: PCP Internal Medicine; Visit Provider Student in an Organized Health Care Education/Training Program
PROC: (CPT 26055; principal; 2021-12-02 14:15)
DX: M24.642 Ankylosis, left hand (principal); S62.621 Displaced fracture of middle phalanx of left index finger; S62.611S Displaced fracture of proximal phalanx of left index finger, sequela; W23.0XXS Caught, crushed, jammed, or pinched between moving objects, sequela
CPT/HCPCS: 26340 ×2; 76000; 73140

== ENCOUNTER 2022-09-14 14:27 | Outpatient (REF) | payer MEDICAID, SELFPAY ==
[2022-09-15 18:11] LABS: PSA, Screening 26.3 ng/mL (<=4.5)
== END 2022-09-14 14:28 | disposition home or self-care (01) ==
LOC: NCHCN 14:27
PROVIDERS: PCP Internal Medicine; Visit Provider Nurse Practitioner Family
DX: N40.1 Benign prostatic hyperplasia with lower urinary tract symptoms (principal); Z12.5 Encounter for screening for malignant neoplasm of prostate
CPT/HCPCS: 84153

== ENCOUNTER 2022-12-16 17:03 | Outpatient (CLI) | payer MEDICAID, SELFPAY ==
[2022-12-16 16:57] LABS: Abs Immature Grans 0.01 10^3/uL (0.0-0.06); Absolute Basophil Count 0.04 10^3/uL (0.0-0.2); Absolute Eosinophil Count 0.16 10^3/uL (0.0-0.7); Absolute Lymphocyte Count 1.72 10^3/uL (1.2-3.4); Absolute Monocyte Count 0.35 10^3/uL (0.1-0.8); Absolute Neutrophil Count 3.57 10^3/uL (1.2-6.7); Basophils % 0.7; Eosinophils % 2.7; HCT 41.7 % (40.0-50.0); HGB 13.9 g/dL (13.5-17.5); Immature Grans % 0.2; Lymphocytes % 29.4; MCH 31.1 pg (27.0-33.0); MCHC 33.3 % (32.0-36.0); MCV 93 fL (80-95); MPV 10.5 fL (8.0-11.0); Platelet Count 188 10^3/uL (130-400); RBC 4.47 10^6/uL (4.36-5.78); RDW 12.5 % (11.8-14.1); RDW-SD 43.1 fL; WBC 5.85 10^3/uL (4.4-10.8)
[2022-12-16 18:25] LABS: ALT 16 U/L (16-63); AST 17 U/L (15-37); Albumin 3.9 g/dL (3.4-5.0); Alkaline Phosphatase 79 U/L (46-116); Anion Gap 7.2 mmol/L (3-11); BUN 12 mg/dL (7-18); Bilirubin, Total 0.3 mg/dL (0.2-1.0); CO2 27.8 mmol/L (21.0-32.0); CREATININE 0.9 mg/dL (0.70-1.30); Chloride 105 mmol/L (98-107); Estimated GFR 95.37 (mL/min/1.73m2); Glucose 96 mg/dL (74-106); Potassium 4.2 mmol/L (3.5-5.1); Sodium 140 mmol/L (136-145); Total Protein 7.2 g/dL (6.4-8.2)
[2022-12-20 12:03] LABS: PSA, Ultrasensitive 32.6 ng/mL (<= 4.5)
[2022-12-21 23:19] LABS: Testosterone, Total 479 ng/dL (240-950)
== END 2022-12-16 17:04 | disposition home or self-care (01) ==
LOC: LBO 17:04
PROVIDERS: PCP Internal Medicine; Visit Provider Radiology Radiation Oncology
DX: C61 Malignant neoplasm of prostate (principal)
CPT/HCPCS: 36415; 80053; 84153; 84403; 85025

== ENCOUNTER 2022-12-22 11:32 | Outpatient (REF) | payer MEDICAID, SELFPAY | END 2022-12-22 11:33 | disposition home or self-care (01) | LOC: LBN 11:32 | PROVIDERS: PCP Internal Medicine; Visit Provider Urology | DX: C61 Malignant neoplasm of prostate (principal); R39.89 Other symptoms and signs involving the genitourinary system | CPT/HCPCS: 87086 ==

== ENCOUNTER 2023-02-04 20:06 | Outpatient (REF) | payer MEDICAID, SELFPAY ==
[2023-02-06 09:57] LABS: HIV-1/2 Ag & Ab Screen Negative (Negative)
[2023-02-07 15:17] LABS: Hepatitis C Ab w Rflx HCV PCR Negative (Negative)
== END 2023-02-04 20:07 | disposition home or self-care (01) ==
LOC: NCHCN 20:06
PROVIDERS: PCP Internal Medicine; Visit Provider Nurse Practitioner Family
DX: Z11.4 Encounter for screening for human immunodeficiency virus [HIV] (principal); Z11.59 Encounter for screening for other viral diseases; Z00.00 Encounter for general adult medical examination without abnormal findings; J98.4 Other disorders of lung
CPT/HCPCS: 86803; 87389

== ENCOUNTER 2023-03-07 12:51 | Emergency (ER) | payer MEDICAID, SELFPAY ==
[2023-03-07 13:01] VITALS: BP 138/85; PULSE 70; RESP 16; O2SAT 99
--- NOTE | 2023-03-07 15:22 | ED.GENADUL_ITS ---
Discharge Plan Disposition Patient Disposition: Home Condition: Stable Discharge Details Clinical Impression: Pain, dental Primary Care Provider: Prosper Fulotn ED Provider: Jesus Eddy Home Meds and New Rx's Prescriptions: New amoxicillin-pot clavulanate 875-125 mg tablet 1 tab PO BID 7 Days Qty: 14 0RF No Action hydrocodone-acetaminophen 5-325 mg tablet 1 tab PO Q6H PRN (Reason: severe pain) Qty: 4 0RF Rx Instructions: Take one tablet up to every 6 hours as needed for severe postoperative pain ibuprofen 600 mg tablet 600 mg PO TID PRN (Reason: pain) Qty: 90 0RF hydrocodone-acetaminophen 5-325 mg tablet 1 tab PO Q4H PRN (Reason: pain) Qty: 14 0RF acetaminophen 500 mg tablet 500 mg PO Q6H PRN (Reason: pain) Qty: 60 2RF Discharge Instructions Instructions: Toothache (ED) Medical Decision Making 62-year-old male presents with dental pain, over the last week, afebrile nontoxic, tolerating secretions normal voice, multiple chronic appearing dental fractures and dental caries, exposed roots of left upper molar, no sign of periapical abscess or deep space infection of head or neck, consider pulpitis in the setting of chronic poor dentition. Will dose Augmentin, patient will likely benefit from root canal, will contact his dentist this week. Given strict return precautions for any worsening symptom HPI General Date/Time Provider Initiated Documentation: 03/07/23 15:12 . HPI Narrative: 62-year-old male presents with 1 week of dental discomfort. Related Data Home Medications Medication Instructions Recorded Confirmed acetaminophen 500 mg tablet 500 mg PO Q6H PRN pain #60 tabs 09/15/21 12/02/21 hydrocodone 5 mg-acetaminophen 325 1 tab PO Q6H PRN severe pain #4 12/02/21 mg tablet tabs ibuprofen 600 mg tablet 600 mg PO TID PRN pain #90 tabs 12/02/21 hydrocodone 5 mg-acetaminophen 325 1 tab PO Q4H PRN pain #14 tabs 12/03/21 mg tablet amoxicillin 875 mg-potassium 1 tab PO BID 7 days #14 tabs 03/07/23 clavulanate 125 mg tablet Previous Rx's Medication Instructions Recorded acetaminophen 500 mg tablet 500 mg PO Q6H PRN pain #60 tabs 09/15/21 hydrocodone 5 mg-acetaminophen 325 1 tab PO Q6H PRN severe pain #4 12/02/21 mg tablet tabs ibuprofen 600 mg tablet 600 mg PO TID PRN pain #90 tabs 12/02/21 hydrocodone 5 mg-acetaminophen 325 1 tab PO Q4H PRN pain #14 tabs 12/03/21 mg tablet amoxicillin 875 mg-potassium 1 tab PO BID 7 days #14 tabs 03/07/23 clavulanate 125 mg tablet Allergies Allergy/AdvReac Type Severity Reaction Status Date / Time No Known Allergies Allergy Verified 12/02/21 11:50 General Stated Complaint: DentalOral DRU: 4 Review of Systems Narrative: Review of Systems Constitutional: negative Eyes: negative ENT: Dental pain Cardiovascular: negative Respiratory: negative Gastrointestinal: negative : negative Musculoskeletal: negative Skin: negative Neurologic: negative Psych: negative PFSH All Active Problems (Updated 03/07/23 @ 15:25 by Jesus Eddy MD) Swelling of left hand (Acute) Rib contusion (Acute) Fracture of proximal phalanx of left index finger (Acute 09/02/21) S/P CRPP: 09/15/2021 Fracture of middle phalanx of left index finger (Acute) Stiffness of finger joint of left hand (Acute) Pain, dental (Acute) Medical History (Updated 03/07/23 @ 15:25 by Jesus Eddy MD) GERD (gastroesophageal reflux disease) Surgical History Fracture, jaw Wired-1969's History of appendectomy History of colonoscopy Social History Smoking/Tobacco Use Status: Never Smoking risk assessment performed?: Yes Alcohol Intake: current Alcohol Intake frequency: a few times a month Alcohol type: beer Drug use: Never Substance use type: does not use Do you feel safe at home: Yes Do you feel safe in your relationship?: Yes Exam Narrative Exam Narrative: Physical Examination General: alert, awake, cooperative, resting comfortably, no acute distress HEENT: normocephalic, atraumatic; PERRL, EOM intact, conjunctiva normal; no nasal discharge; moist mucous membranes, oral and pharyngeal mucosa normal, tolerating secretions; multiple dental caries and dental fractures chronic appearing, upper molar exposed roots without induration or erythema or purulent drainage, no submental or sublingual induration no submandibular induration Neck: supple, trachea midline; full ROM Chest: normal to inspection Respiratory: normal respiratory effort, speaking in full sentences Course Vital Signs Vital signs: Vital Signs Pulse 70 03/07/23 13:01 Respiratory Rate 16 03/07/23 13:01 Blood Pressure 138/85 03/07/23 13:01 Pulse Oximetry 99 03/07/23 13:01 Temperature Source Skin 03/07/23 13:01 Pulse 70 03/07/23 13:01 Respiratory Rate 16 03/07/23 13:01 Blood Pressure 138/85 03/07/23 13:01 Blood Pressure Position Sitting 03/07/23 13:01 Pulse Oximetry 99 03/07/23 13:01 Oxygen Delivery Method Room Air 03/07/23 13:01 Oxygen Flow Rate 0 03/07/23 13:01 Pain Level 6 03/07/23 13:01 Comment taking ibuprofen and using hurricane gel 03/07/23 13:01
[2023-03-07] MEDS: Amoxicillin 875/Clav. 125 TAB PO (15:25)
== END 2023-03-07 15:29 | disposition home or self-care (01) ==
PROVIDERS: Emergency Provider Emergency Medicine; PCP Internal Medicine
DX: K08.89 Other specified disorders of teeth and supporting structures (principal)
CPT/HCPCS: 99283; 99284

== ENCOUNTER 2023-03-18 01:57 | Outpatient (CLI) | payer MEDICAID, SELFPAY ==
[2023-03-18 17:24] LABS: Abs Immature Grans 0.01 10^3/uL (0.0-0.06); Absolute Basophil Count 0.08 10^3/uL (0.0-0.2); Absolute Eosinophil Count 0.28 10^3/uL (0.0-0.7); Absolute Lymphocyte Count 2.22 10^3/uL (1.2-3.4); Absolute Monocyte Count 0.53 10^3/uL (0.1-0.8); Absolute Neutrophil Count 4.76 10^3/uL (1.2-6.7); Eosinophils % 3.6; HCT 39.6 % (40.0-50.0); HGB 13.5 g/dL (13.5-17.5); Immature Grans % 0.1; Lymphocytes % 28.2; MCH 30.8 pg (27.0-33.0); MCHC 34.1 % (32.0-36.0); MCV 90 fL (80-95); MPV 11.6 fL (8.0-11.0); Monocytes % 6.7; Neutrophils % 60.4; Platelet Count 263 10^3/uL (130-400); RBC 4.39 10^6/uL (4.36-5.78); RDW 12.5 % (11.8-14.1); RDW-SD 41.5 fL; WBC 7.88 10^3/uL (4.4-10.8)
[2023-03-18 17:59] LABS: ALT 20 U/L (16-63); AST 29 U/L (15-37); Albumin 4.3 g/dL (3.4-5.0); Alkaline Phosphatase 105 U/L (46-116); Anion Gap 12.1 mmol/L (3-11); BUN 27 mg/dL (7-18); Bilirubin, Total 0.2 mg/dL (0.2-1.0); CO2 22.9 mmol/L (21.0-32.0); CREATININE 1.2 mg/dL (0.70-1.30); Calcium 9.3 mg/dL (8.5-10.1); Chloride 103 mmol/L (98-107); Estimated GFR 67.53 (mL/min/1.73m2); Glucose 95 mg/dL (74-106); Potassium 4.1 mmol/L (3.5-5.1); Sodium 138 mmol/L (136-145); TSH (W/Ref FT4) 2.07 uIU/mL (0.36-3.74)
== END 2023-03-18 01:58 | disposition home or self-care (01) ==
LOC: LBO 01:58
PROVIDERS: PCP Internal Medicine; Visit Provider Internal Medicine
DX: C61 Malignant neoplasm of prostate (principal); Z79.899 Other long term (current) drug therapy
CPT/HCPCS: 36415; 80053; 84443; 85025

== ENCOUNTER 2023-06-15 12:38 | Outpatient (CLI) | payer MEDICAID, SELFPAY ==
[2023-05-27 15:26] LABS: Abs Immature Grans 0.01 10^3/uL (0.0-0.06); Absolute Basophil Count 0.04 10^3/uL (0.0-0.2); Absolute Eosinophil Count 0.11 10^3/uL (0.0-0.7); Absolute Monocyte Count 0.37 10^3/uL (0.1-0.8); Absolute Neutrophil Count 3.53 10^3/uL (1.2-6.7); Basophils % 0.7; Eosinophils % 1.9; HCT 36.5 % (40.0-50.0); HGB 12.5 g/dL (13.5-17.5); Immature Grans % 0.2; Lymphocytes % 28.3; MCH 31.3 pg (27.0-33.0); MCHC 34.2 % (32.0-36.0); MCV 91 fL (80-95); MPV 10.5 fL (8.0-11.0); Monocytes % 6.5; Neutrophils % 62.4; Platelet Count 234 10^3/uL (130-400); RDW 12.7 % (11.8-14.1); RDW-SD 41.9 fL; WBC 5.66 10^3/uL (4.4-10.8)
[2023-05-27 15:49] LABS: ALT 15 U/L (16-63); AST 20 U/L (15-37); Albumin 3.7 g/dL (3.4-5.0); Alkaline Phosphatase 84 U/L (46-116); Anion Gap 8.6 mmol/L (3-11); BUN 11 mg/dL (7-18); Bilirubin, Total 0.2 mg/dL (0.2-1.0); CO2 25.4 mmol/L (21.0-32.0); CREATININE 0.8 mg/dL (0.70-1.30); Calcium 9.3 mg/dL (8.5-10.1); Chloride 104 mmol/L (98-107); Estimated GFR 98.83 (mL/min/1.73m2); Glucose 100 mg/dL (74-106); Potassium 3.9 mmol/L (3.5-5.1); Sodium 138 mmol/L (136-145); TSH 2.64 uIU/mL (0.36-3.74); Total Protein 7.3 g/dL (6.4-8.2)
[2023-05-30 09:38] LABS: PSA, Screening 0.1 ng/mL (<=4.5)
[2023-06-01 16:10] LABS: Testosterone, Total <7.0 ng/dL (240-950)
== END 2023-06-15 12:39 | disposition home or self-care (01) ==
LOC: LBO 12:38
PROVIDERS: PCP Internal Medicine; Visit Provider Internal Medicine
DX: C61 Malignant neoplasm of prostate (principal); Z79.899 Other long term (current) drug therapy
CPT/HCPCS: 36415; 80053; 84153; 84403; 84443; 85025

== ENCOUNTER 2023-08-23 12:41 | Outpatient (CLI) | payer MEDICAID, SELFPAY ==
[2023-08-23 16:37] LABS: Abs Immature Grans 0.01 10^3/uL (0.0-0.06); Absolute Basophil Count 0.02 10^3/uL (0.0-0.2); Absolute Eosinophil Count 0.08 10^3/uL (0.0-0.7); Absolute Lymphocyte Count 0.69 10^3/uL (1.2-3.4); Absolute Monocyte Count 0.28 10^3/uL (0.1-0.8); Absolute Neutrophil Count 3.27 10^3/uL (1.2-6.7); Basophils % 0.5; Eosinophils % 1.8; HCT 35.9 % (40.0-50.0); HGB 12.3 g/dL (13.5-17.5); Immature Grans % 0.2; Lymphocytes % 15.9; MCH 31.4 pg (27.0-33.0); MCHC 34.3 % (32.0-36.0); MCV 92 fL (80-95); Monocytes % 6.4; Neutrophils % 75.2; Platelet Count 214 10^3/uL (130-400); RBC 3.92 10^6/uL (4.36-5.78); RDW 13.1 % (11.8-14.1); WBC 4.35 10^3/uL (4.4-10.8)
[2023-08-23 17:20] LABS: ALT 14 U/L (16-63); AST 15 U/L (15-37); Albumin 3.9 g/dL (3.4-5.0); Alkaline Phosphatase 87 U/L (46-116); Anion Gap 9.6 mmol/L (3-11); BUN 12 mg/dL (7-18); Bilirubin, Total 0.2 mg/dL (0.2-1.0); CO2 27.4 mmol/L (21.0-32.0); CREATININE 0.9 mg/dL (0.70-1.30); Calcium 9.2 mg/dL (8.5-10.1); Chloride 105 mmol/L (98-107); Estimated GFR 95.37 (mL/min/1.73m2); Glucose 108 mg/dL (74-106); Potassium 3.8 mmol/L (3.5-5.1); Sodium 142 mmol/L (136-145); TSH (W/Ref FT4) 2.77 uIU/mL (0.36-3.74); Total Protein 7.2 g/dL (6.4-8.2)
[2023-08-26 11:26] LABS: PSA, Ultrasensitive 0.02 ng/mL (<= 4.5)
[2023-08-27 14:01] LABS: Testosterone, Total <7.0 ng/dL (240-950)
== END 2023-08-23 12:42 | disposition home or self-care (01) ==
PROVIDERS: PCP Internal Medicine; Visit Provider Internal Medicine
DX: C61 Malignant neoplasm of prostate (principal)
CPT/HCPCS: 36415; 80053; 84153; 84403; 84443; 85025

== ENCOUNTER → 2023-09-14 04:05 | Outpatient (CLI) | payer MEDICAID, SELFPAY ==
--- NOTE | 2023-09-14 07:10 | DI.US_ITS ---
Exam(s) US AXILLA RT EXAM: US AXILLA RT CLINICAL HISTORY: RT SKIN NODULE, RT AXILLA SWELLING,R22.9 TECHNIQUE: Ultrasound right axilla performed using standard protocol. COMPARISON: No exams were available for comparison FINDINGS: The palpable abnormality corresponds to normal appearing lymph node with central fatty hilum measurin g 2.5 x 0.5 x 2.7 cm. No solid or cystic masses, hypoechoic foci, areas of abnormal shadowing, or areas of skin thickening. IMPRESSION: No sonographically suspicious finding. Palpable abnormality corresponds to a normal appearing axilla ry lymph node. DATA REPOSITORY:
== END ==
PROVIDERS: PCP Internal Medicine; Visit Provider Nurse Practitioner Family
DX: R22.31 Localized swelling, mass and lump, right upper limb (principal)
CPT/HCPCS: 76642

== ENCOUNTER 2023-11-17 13:30 | Outpatient (CLI) | payer MEDICARE, MEDICAID, SELFPAY ==
[2023-11-17 16:34] LABS: Abs Immature Grans 0.02 10^3/uL (0.0-0.06); Absolute Basophil Count 0.03 10^3/uL (0.0-0.2); Absolute Eosinophil Count 0.11 10^3/uL (0.0-0.7); Absolute Lymphocyte Count 0.84 10^3/uL (1.2-3.4); Absolute Monocyte Count 0.32 10^3/uL (0.1-0.8); Absolute Neutrophil Count 3.52 10^3/uL (1.2-6.7); Basophils % 0.6 %; Eosinophils % 2.3 %; HCT 39.7 % (40.0-50.0); HGB 13.6 g/dL (13.5-17.5); Immature Grans % 0.4 %; Lymphocytes % 17.4 %; MCH 32.3 pg (27.0-33.0); MCHC 34.3 % (32.0-36.0); MCV 94 fL (80-95); MPV 10.5 fL (8.0-11.0); Monocytes % 6.6 %; Neutrophils % 72.7 %; Platelet Count 232 10^3/uL (130-400); RBC 4.21 10^6/uL (4.36-5.78); RDW 12.4 % (11.8-14.1); RDW-SD 43.5 fL; WBC 4.84 10^3/uL (4.4-10.8)
[2023-11-17 17:03] LABS: ALT 10 U/L (16-63); AST 10 U/L (15-37); Alkaline Phosphatase 94 U/L (46-116); BUN 13 mg/dL (7-18); Bilirubin, Total 0.2 mg/dL (0.2-1.0); CREATININE 0.8 mg/dL (0.70-1.30); Calcium 8.8 mg/dL (8.5-10.1); Chloride 105 mmol/L (98-107); Estimated GFR 98.21 (mL/min/1.73m2); Glucose 98 mg/dL (74-106); Potassium 4.1 mmol/L (3.5-5.1); Sodium 141 mmol/L (136-145); TSH (W/Ref FT4) 2.62 uIU/mL (0.36-3.74); Total Protein 7.3 g/dL (6.4-8.2)
[2023-11-22 10:37] LABS: PSA, Ultrasensitive 0.02 ng/mL (<= 4.5)
[2023-11-24 16:48] LABS: Testosterone, Total <7.0 ng/dL (240-950)
== END 2023-11-17 13:31 | disposition home or self-care (01) ==
LOC: LBO 13:30
PROVIDERS: PCP Internal Medicine; Visit Provider Internal Medicine Medical Oncology
DX: C61 Malignant neoplasm of prostate (principal)
CPT/HCPCS: 36415; 80053; 84153; 84403; 84443; 85025

== ENCOUNTER → 2023-11-21 03:39 | Outpatient (CLI) | payer MEDICARE, MEDICAID, SELFPAY ==
--- NOTE | 2023-11-21 | DI.US_ITS ---
Exam(s) US AAA SCREENING EXAM: US AAA SCREENING CLINICAL HISTORY: SCREENING FOR CARDIOVASCULAR SYSTEM DISEASE, Z13.6, SCREENING AAA COMPARISON: No exams were available for comparison FINDINGS: Abdominal Aorta: Proximal: 2.3 x 2.3 cm Mid: 1.9 x 1.9 cm Distal: 1.7 x 1.7 cm Iliac's: The common iliac arteries could not be visualized due to overlying bowel. No significant atherosclerotic disease is seen. IMPRESSION: No evidence of abdominal aortic aneurysm. DATA REPOSITORY:
== END ==
PROVIDERS: PCP Internal Medicine; Visit Provider Nurse Practitioner Family
DX: Z13.6 Encounter for screening for cardiovascular disorders (principal)
CPT/HCPCS: 76706

== ENCOUNTER 2024-02-14 02:57 | Outpatient (CLI) | payer MEDICARE, SELFPAY ==
[2024-02-14 17:09] LABS: Abs Immature Grans 0.01 10^3/uL (0.0-0.06); Absolute Basophil Count 0.03 10^3/uL (0.0-0.2); Absolute Eosinophil Count 0.12 10^3/uL (0.0-0.7); Absolute Lymphocyte Count 0.74 10^3/uL (1.2-3.4); Absolute Monocyte Count 0.32 10^3/uL (0.1-0.8); Absolute Neutrophil Count 3.24 10^3/uL (1.2-6.7); Basophils % 0.7 %; Eosinophils % 2.7 %; HCT 35.5 % (40.0-50.0); HGB 11.9 g/dL (13.5-17.5); Immature Grans % 0.2 %; Lymphocytes % 16.6 %; MCH 32.6 pg (27.0-33.0); MCHC 33.5 % (32.0-36.0); MCV 97 fL (80-95); MPV 10.4 fL (8.0-11.0); Monocytes % 7.2 %; Neutrophils % 72.6 %; Platelet Count 195 10^3/uL (130-400); RBC 3.65 10^6/uL (4.36-5.78); RDW 13.2 % (11.8-14.1); RDW-SD 46.9 fL; WBC 4.46 10^3/uL (4.4-10.8)
[2024-02-14 18:11] LABS: ALT 14 U/L (16-63); AST 12 U/L (15-37); Albumin 3.7 g/dL (3.4-5.0); Alkaline Phosphatase 105 U/L (46-116); Anion Gap 8.8 mmol/L (3-11); BUN 12 mg/dL (7-18); Bilirubin, Total 0.15 mg/dL (0.2-1.0); CO2 27.2 mmol/L (21.0-32.0); CREATININE 0.8 mg/dL (0.70-1.30); Calcium 8.8 mg/dL (8.5-10.1); Chloride 106 mmol/L (98-107); Estimated GFR 98.21 (mL/min/1.73m2); Glucose 106 mg/dL (74-106); Sodium 142 mmol/L (136-145); TSH (W/Ref FT4) 3.27 uIU/mL (0.36-3.74); Total Protein 6.5 g/dL (6.4-8.2)
[2024-02-16 20:03] LABS: PSA, Ultrasensitive 0.02 ng/mL (<= 4.5)
[2024-02-21 14:18] LABS: Testosterone, Total <7.0 ng/dL (240-950)
== END 2024-02-14 02:58 | disposition home or self-care (01) ==
LOC: LBO 02:57
PROVIDERS: PCP Nurse Practitioner Family; Visit Provider Internal Medicine
DX: C61 Malignant neoplasm of prostate (principal)
CPT/HCPCS: 36415; 80053; 84153; 84403; 84443; 85025

== ENCOUNTER 2024-02-20 22:44 | Outpatient (REF) | payer MEDICARE, SELFPAY ==
[2024-02-20 21:21] LABS: Calculated LDL 108 mg/dL (<100); Cholesterol 234 mg/dL (<200); HDL Cholesterol 76 mg/dL (40-60); Triglyceride 250 mg/dL (<150)
[2024-02-20 21:25] LABS: Hemoglobin A1C 5.6 % (<5.7)
== END 2024-02-20 22:45 | disposition home or self-care (01) ==
LOC: NCHCN 22:44
PROVIDERS: PCP Nurse Practitioner Family; Visit Provider Nurse Practitioner Family
DX: Z13.1 Encounter for screening for diabetes mellitus (principal)
CPT/HCPCS: 80061; 83036

== ENCOUNTER 2025-03-19 11:10 | Outpatient (CLI) | payer MEDICARE, SELFPAY ==
--- NOTE | 2025-03-19 | DI.US_ITS ---
Exam(s) US AXILLA RT EXAM: US AXILLA RT CLINICAL HISTORY: LOCALIZED SWELLING,R22.9,RT AXILLARY SWELLING,M79.89,Z92.29,R22.31 TECHNIQUE: Ultrasound right axilla performed using standard protocol. COMPARISON: None FINDINGS: There are no significant focal findings in the right axilla. No evidence of mass nor abnormal fluid collection. No lymphadenopathy. IMPRESSION: No significant ultrasound findings in the right axilla. DATA REPOSITORY:
== END 2025-03-19 11:30 ==
PROVIDERS: PCP Nurse Practitioner Family; Visit Provider Nurse Practitioner
DX: C61 Malignant neoplasm of prostate (principal); R23.2 Flushing; R22.31 Localized swelling, mass and lump, right upper limb; Z86.03 Personal history of neoplasm of uncertain behavior
CPT/HCPCS: 76642